=== PATIENT | female | born 1975 | race Caucasian/White ===

== ENCOUNTER → 2025-04-25 | Outpatient (CLI) | payer BC ==
--- NOTE | 2025-04-25 15:47 | HMCIMG ---
DOUBLE CONTRAST UPPER GI SERIES: Finding: The study was performed using provocative maneuvers After swallowing effervescent crystal and thick barium, there is no definite intrinsic or extrinsic lesion seen in the esophagus. There is grade 2 esophageal reflux. There is no evidence of hiatal hernia. The stomach is normal in size, shape, and configuration. The rugal folds appear to be normal. There is delayed emptying suggesting of gastroparesis. The duodenal bulb, duodenal sweep, and upper jejunum appear to be normal.. There is a small second portion duodenal diverticulum. There is a tacking device seen in the right humeral head. Fluoroscopy time: 1.4 minutes . IMPRESSION: Grade 2 esophageal reflux Delayed gastric emptying suggesting of gastroparesis Duodenal diverticulum Otherwise NORMAL DOUBLE CONTRAST UPPER GI SERIES.
== END | disposition home or self-care (01) ==
LOC: RAH 09:47
PROVIDERS: ATTEND Internal Medicine
DX: K21.9 Gastro-esophageal reflux disease without esophagitis (principal); K57.10 Diverticulosis of small intestine without perforation or abscess without bleeding; R13.10 Dysphagia, unspecified
CPT/HCPCS: 74240